=== PATIENT | male | born 1995 | race Caucasian/White ===

== ENCOUNTER 2021-02-14 18:18 | Emergency (ER) | payer SELFPAY ==
--- NOTE | ~2021-02-14 | XR_ITS ---
EXAMINATION: XR ribs RT 2V INDICATION: Right chest pain TECHNIQUE: 3 views of the right ribs were obtained. COMPARISON: None. FINDINGS: The right lung is clear. There is no pleural effusion or pneumothorax. The cardiomediastina l silhouette is normal. No displaced rib fracture is identified. The visualized osseous structures ar e unremarkable. IMPRESSION: 1. No acute cardiopulmonary abnormality or evidence of displaced rib fracture. Reviewed, dictated and finalized at location A.
[2021-02-14 18:30] VITALS: BP 139/116; PULSE 89; RESP 18; TEMP 36.3; O2SAT 100
--- NOTE | 2021-02-14 20:10 | ED.GENADULT ---
HPI - General Adult General Chief complaint: Unspecified Stated complaint: right rib out of place?? Time Seen by Provider: 02/14/21 19:54 History of Present Illness HPI narrative: Patient is a 25-year-old male who presents ER with concerns that he has a displaced ribs on his right side. He started feeling his ribs today and felt like they are abnormal compared to yesterday. No known trauma. No difficulty breathing. No bruising to his chest wall. Has mild discomfort over the lower ribs on the right side is a border the abdomen. Related Data Home Medications Medication Instructions Recorded Confirmed No Home Medications 02/14/21 02/14/21 Allergies Allergy/AdvReac Type Severity Reaction Status Date / Time No Known Allergies Allergy Verified 02/14/21 19:39 Review of Systems Review of Systems: All systems reviewed & are unremarkable except as noted in HPI and below Cardiovascular: Cardiovascular: Reports chest pain (Rib pain) and Denies radiating jaw, neck or arm pain Respiratory: Respiratory: Denies cough, Denies dyspnea and Denies wheezing Gastrointestinal: Gastrointestinal: Denies abdominal pain, Denies nausea and Denies vomiting PMFSH Past Medical History Medical History (Updated 02/14/21 @ 20:35 by Andres Ortiz MD) MDD (major depressive disorder), recurrent episode, moderate Surgical History Surgical History (Updated 02/14/21 @ 20:30 by Andres Ortiz MD) No pertinent past surgical history Family History Family History Father Asthma Heart disease Mother Depression Sibling Depression Social History Social History (Updated 09/11/20 @ 14:46 by Savanah Dyer) Social History: Single Smoking packs per day: 1 Smoking cigarettes per day: 20.0 Years smoked: 5 Smoking pack-years: 5.00 Smoking status: Current every day smoker Tobacco type: cigarettes Second hand tobacco smoke exposure: Yes Alcohol intake: current Alcohol use details: Occasionally Substance use: current Substance use type: marijuana Last use: Pt last usage was this morning. Gender identity (if verbalized by the patient): Male Sexual Orientation (if Verbalized by the Patient): Straight or Heterosexual Exam Narrative: GENERAL: Well-appearing, well-nourished, and in no acute distress. HEAD: Normocephalic, atraumatic. CHEST: Clear to auscultation. No respiratory distress. HEART: Regular rate and rhythm. Normal peripheral pulses. ABDOMEN: Soft, nontender, nondistended, normal active bowel sounds. EXTREMITIES: Normal range of motion. No edema. SKIN: Warm, dry, no rash. NEURO: Alert and oriented x3. Course Course Emergency Course: Unremarkable imaging. Discharge home. Patient feels reassured. Vital Signs Vital signs: Vital Signs Temperature 97.3 F L 02/14/21 18:30 Pulse Rate 89 02/14/21 18:30 Respiratory Rate 18 02/14/21 18:30 Blood Pressure 139/116 H 02/14/21 18:30 Pulse Oximetry 100 02/14/21 18:30 Temperature 97.3 F L 02/14/21 18:30 Pulse Rate 89 02/14/21 18:30 Respiratory Rate 18 02/14/21 18:30 Blood Pressure 139/116 H 02/14/21 18:30 Pulse Oximetry 100 02/14/21 18:30 Medical Decision Making Vital Signs Vital Signs: Vital Signs Temperature 97.3 F L 02/14/21 18:30 Pulse Rate 89 02/14/21 18:30 Respiratory Rate 18 02/14/21 18:30 Blood Pressure 139/116 H 02/14/21 18:30 Pulse Oximetry 100 02/14/21 18:30 Temperature 97.3 F L 02/14/21 18:30 Pulse Rate 89 02/14/21 18:30 Respiratory Rate 18 02/14/21 18:30 Blood Pressure 139/116 H 02/14/21 18:30 Pulse Oximetry 100 02/14/21 18:30 Imaging Data Radiologist's impression: ITS Impressions Ribs X-Ray 02/14/21 20:20 IMPRESSION: 1. No acute cardiopulmonary abnormality or evidence of displaced rib fracture. Discharge Plan Discharge Clinical Impression: Chest wall pain
[2021-02-14 21:05] VITALS: BP 122/78; PULSE 84; RESP 16; TEMP 36.8; O2SAT 100
== END 2021-02-14 21:05 | disposition home or self-care (01) ==
PROVIDERS: Emergency Provider Emergency Medicine; PCP Family Medicine
DX: R07.89 Other chest pain (principal); F17.210 Nicotine dependence, cigarettes, uncomplicated
CPT/HCPCS: 71100; 99283

== ENCOUNTER 2021-05-02 18:13 | Emergency (ER) | payer MEDICAID, SELFPAY ==
[2021-05-02 18:26] VITALS: BP 122/68; PULSE 89; RESP 16; TEMP 37.3; O2SAT 98
--- NOTE | 2021-05-02 20:15 | ED.DENTAL ---
HPI - Dental/Oral General Chief complaint: Dental/Oral Stated complaint: jaw pain Time Seen by Provider: 05/02/21 20:00 Source: patient, RN notes reviewed and old records reviewed Mode of arrival: ambulatory Limitations: no limitations History of Present Illness HPI Narrative: 25-year-old male who presents to [facility] with 2-week duration of pain to his left ear with intermittent ringing and some sinus drainage.Patient states that he also has some pain to the left back lower 2molars which have some erosion and caries which is waxing and waning in intensity. He reports that he is planning on calling [facility] in [place] to get dental care. Patient reports that he has taken some Ibuprofen with some help in discomfort. MD Complaint: tooth pain and tooth injury (17 and 18) Location: Tooth # (17) Onset (ago): week(s) (2) Treatment prior to arrival: oral analgesic Related Data Allergies Allergy/AdvReac Type Severity Reaction Status Date / Time No Known Allergies Allergy Verified 05/02/21 19:09 Review of Systems Review of Systems: CONSTITUTIONAL: Denies fever, chills, or sweats. EYES: Denies visual changes, redness, or discharge. ENT: Positive for rhinorrhea, congestion, sore throat, left otalgia, dental pain #17.18 teeth CARDIOVASCULAR: Denies chest pain, palpitations, or edema. RESPIRATORY: Denies cough or dyspnea. GASTROINTESTINAL: Denies abdominal pain, nausea, vomiting, or diarrhea. GENITOURINARY: Denies dysuria or hematuria. SKIN: Denies rash or itching. MUSCULOSKELETAL: Denies back pain, joint pain, or myalgia. NEUROLOGIC: Denies headache, numbness, or weakness. PSYCHIATRIC: Positive history of anxiety or depression. All systems reviewed & are unremarkable except as noted in HPI and below PMFSH Past Medical History Medical History (Updated 05/04/21 @ 12:46 by Lili Doe NP) MDD (major depressive disorder), recurrent episode, moderate Seasonal allergies Surgical History Surgical History No pertinent past surgical history Family History Family History Father Asthma Heart disease Mother Depression Sibling Depression Social History Social History (Reviewed 05/02/21 @ 20:27 by DEVI Castro Social History: Single Smoking packs per day: 1 Smoking cigarettes per day: 20.0 Years smoked: 5 Smoking pack-years: 5.00 Smoking status: Current every day smoker Tobacco type: cigarettes Second hand tobacco smoke exposure: Yes Alcohol intake: current Alcohol use details: Occasionally Substance use: current Substance use type: marijuana Last use: Pt last usage was this morning. Gender identity (if verbalized by the patient): Male Sexual Orientation (if Verbalized by the Patient): Straight or Heterosexual Comments At time of signature, agree with nursing past medical, surgical, social and family history. There is no relevant family history pertinent to the presenting complaint Exam Narrative: GENERAL: Well-appearing, well-nourished, and in no acute distress. HEAD: Normocephalic, atraumatic. EYES: PERRLA and EOMI. ENT: Nares red with some clear rhinorrhea no epistaxis. Mucous membranes moist.Left TM normal with dull light reflex, Right TM normal with good light reflex no redness or swelling of ears, throat pink with no lesions exudates or tonsil enlargement, some post nasal drainage NECK: Supple.no lymphadenopathy no Woo angina or trismus CHEST: Clear to auscultation. No respiratory distress.SAO2 98% on room air HEART: Regular rate and rhythm. No murmur heard. Normal peripheral pulses. ABDOMEN: Soft, nontender, nondistended, normal active bowel sounds. EXTREMITIES: Normal range of motion. No edema. SKIN: Warm, dry, no rash. NEURO: No focal deficits. Alert and oriented x3. Course Course Level of Care: Express Care Visit Vital Signs Vital sig
== END 2021-05-02 20:30 | disposition home or self-care (01) ==
PROVIDERS: Emergency Provider Registered Nurse
DX: K02.9 Dental caries, unspecified (principal); H92.02 Otalgia, left ear; F17.210 Nicotine dependence, cigarettes, uncomplicated; F12.90 Cannabis use, unspecified, uncomplicated
CPT/HCPCS: 99213; G0463